=== PATIENT | male | born 1970 | race Hispanic/Latino ===

== ENCOUNTER 2018-04-29 03:33 | Emergency (ER) | payer BC ==
[2018-04-29] MEDS ORDERED: ASPIRIN 325 MG TABLET ONE (04:11)
[2018-04-29] MEDS ORDERED: NITROGLYCERIN 1GM/1 INCH PACKET TD ONE (04:11)
[2018-04-29] MEDS ORDERED: NITROGLYCERIN 0.4 MG SL TAB SL ONE (04:18)
[2018-04-29 04:20] LABS: BASOPHILS % (AUTO) 0.8 % (0.0-5.0); EOSINOPHILS % (AUTO) 3.4 % (0.0-8.0); HEMATOCRIT 47.7 % (42-54); LYMPHOCYTES % (AUTO) 32.2 % (21.0-51.0); MEAN CORPUSCULAR HEMOGLOBIN 30.4 pg (27.0-33.0); MEAN CORPUSCULAR HGB CONC 34.6 g/dL (32.0-36.0); MEAN CORPUSCULAR VOLUME 88.1 fL (79-99); MONOCYTES % (AUTO) 7.6 % (3.0-13.0); PLATELET COUNT (AUTO) 244 K/uL (130-400); RED BLOOD CELL COUNT(AUTO) 5.42 MIL/uL (4.50-6.20); RED CELL DISTRIBUTION WIDTH 13.5 % (11.0-15.5); WHITE BLOOD COUNT (AUTO) 6.8 K/uL (4.8-10.8)
[2018-04-29 04:28] LABS: CREATININE 0.9 mg/dL (0.5-1.5); POTASSIUM 3.8 mmol/L (3.5-5.1)
[2018-04-29 04:34] LABS: ALBUMIN 3.8 g/dL (3.5-5.0); TOTAL PROTEIN, SERUM 7.3 g/dL (6.0-8.3)
[2018-04-29] MEDS ORDERED: MORPHINE SULFATE 4 MG/1ML SYG ONE (04:44)
[2018-04-29] MEDS ORDERED: ONDANSETRON HCL 4 MG/2 ML VIAL ONE (04:44)
[2018-04-29] MEDS ORDERED: IOHEXOL-350 75 ML VIAL IV ONE (06:34)
[2018-04-29] MEDS ORDERED: IOHEXOL 350 MG/ML 100ML INFUS..BTL IV ONE (06:36)
== END 2018-04-29 07:53 | disposition home or self-care (01) ==
LOC: EDH 03:33
DX: M25.512 Pain in left shoulder (principal); R07.89 Other chest pain; I10 Essential (primary) hypertension; R06.00 Dyspnea, unspecified; Z87.891 Personal history of nicotine dependence
CPT/HCPCS: 36415; 71045; 71275; 80053; 82550; 83880; 84484 ×2; 85025; 93005; 96374; 96375; 99285; J2270; J2405; Q9967

== ENCOUNTER 2020-01-07 15:48 | Emergency (ER) | payer BC ==
[2020-01-07] MEDS ORDERED: ACETAMINOPHEN EXTRA STRENGTH 500 MG TABLET ONE ×2 (16:20→16:24)
[2020-01-07] MEDS ORDERED: ONDANSETRON ODT 4 MG TAB ONE ×2 (16:21→16:25)
== END 2020-01-07 17:41 | disposition home or self-care (01) ==
LOC: EDH 15:48
DX: R50.9 Fever, unspecified (principal); R05 Cough; R11.0 Nausea; M79.10 Myalgia, unspecified site; Z20.828 Contact with and (suspected) exposure to other viral communicable diseases; I10 Essential (primary) hypertension; Z87.891 Personal history of nicotine dependence

== ENCOUNTER → 2021-03-21 | Outpatient (CLI) | payer BC | END | disposition home or self-care (01) | LOC: SHCH 10:51 | PROVIDERS: ATTEND Internal Medicine Cardiovascular Disease | DX: I10 Essential (primary) hypertension (principal) | CPT/HCPCS: 93306; 93356 ==